=== PATIENT | male | born 2000 | race Caucasian/White ===

== ENCOUNTER 2025-04-24 03:15 | Emergency (ER) | payer BC, SELFPAY ==
[2025-04-24 03:18] VITALS: BP 139/89
[2025-04-24 03:53] LABS: Hematocrit 43.9 % (39.0-52.0); Hemoglobin 15.6 g/dL (13.0-18.0); Mean Corp Hgb Conc. 35.5 g/dL (33.0-37.0); Mean Corpuscular Volume 81.4 fL (80.0-94.0); Nucleated Red Blood Cells % 0 % (-); Platelet Count 270 10^3/uL (130-400); Red Cell Dist. Width 11.9 % (11.5-14.5)
[2025-04-24 04:20] LABS: ALT (SGPT) 27 U/L (0-50); AST (SGOT) 50 U/L (17-59); Albumin 5.0 g/dl (3.5-5.0); Alkaline Phosphatase 61 U/L (38-126); Blood Urea Nitrogen 10 mg/dl (9-20); Calcium 9.7 mg/dl (8.4-10.2); Carbon Dioxide 21 mmol/L (22-30); Chloride 107 mmol/L (98-107); Glucose 117 mg/dl (70-99); Potassium 4.0 mmol/L (3.5-5.1); Sodium 139 mmol/L (135-145); Total Protein 7.7 g/dl (6.3-8.2); eGFR > 60.00
--- NOTE | 2025-04-24 05:58 | ED.GENMED ---
History of Present Illness
General
Chief Complaint: Rectal Bleeding
Source: patient
Exam Limitations: none
Time Seen by Provider: 04/24/25 03:29
Nursing documentation reviewed up to this point in time: agreed with
History of Present Illness
History of Present Illness:
Note:
CHIEF COMPLAINT(S)
Acute intestinal issues. Abdominal pain
HISTORY OF PRESENT ILLNESS
The patient is a 24-year-old male presenting with acute abdominal pain. The onset of symptoms began at approximately 3:00 AM. The patient reports no prior history of similar episodes. Initially, symptoms started after a walk, with the patient
experiencing a strong urge to defecate, resulting in multiple bowel movements. During this time, the patient experienced profuse sweating and subsequently had several more bowel movements, some of which were accompanied by blood.
PLAN
The plan includes administering fluids to the patient and conducting a computed tomography (CT) scan to further evaluate the intestinal issues.
DIFFERENTIAL DIAGNOSIS
The Differential Diagnosis includes, in no particular order and is not limited to:
1. Infectious gastroenteritis
2. Inflammatory bowel disease
3. Gastrointestinal bleeding
4. Diverticulitis
5. Ischemic colitis
6. Peptic ulcer disease with bleeding
7. Hemorrhoids
8. Anal fissure
9. Irritable bowel syndrome with diarrhea
10. Foodborne illness
CARE-UPDATE
04/24/25 - 04:37
The patients stool consistency has improved; it is more formed, and no blood is currently noted. The initial concern about bloody diarrhea has diminished, reducing the level of worry regarding this symptom. The patient experienced significant
dehydration, contributing to episodes of shaking, likely due to excessive fluid loss. This condition is atypical for the patient, as he generally does not fall ill, which might be contributing to his anxiety. Monitoring and hydration are advised to
prevent further dehydration and alleviate associated symptoms.
CARE-UPDATE
04/24/25 - 05:14
Patient reports improvement with no recent blood in stools. Awaiting lab results for further evaluation. Plan to administer one liter of fluids while monitoring. Possibility of colitis mentioned; no nausea reported.
CARE-UPDATE
04/24/25 - 05:58
CT scan shows a mildly thick-walled sigmoid colon, mostly decompressed, suggestive of mild colitis, but non-specific findings. There is no significant stranding, pneumatosis, portal venous gas, free air, or free fluid observed. Appendix,
gallbladder, common bile duct, and pancreas appear normal. No renal calculi or hydronephrosis noted.
Disposition:
SUMMARY OF ENCOUNTER
A 24-year-old male presented with acute abdominal pain that began around 3 a.m. He experienced multiple episodes of stools, some with blood streaking. A CT scan showed findings suggestive of mild colitis. The bleeding has stopped, and the patient
has provided stool samples without blood. The patient reports feeling significantly better.
DISPOSITION
Discharge
ASSESSMENT
The patients current symptoms and CT findings suggest mild colitis as the most likely diagnosis.
PLAN
The patient is to remain hydrated and monitor for any recurrence of symptoms. Should symptoms return or worsen, he is advised to seek further medical evaluation.
INDEPENDENT REVIEW OF LABS AND INTERPRETATION OF TESTS
My independent interpretation of the CT scan shows a mildly thick-walled sigmoid colon, suggestive of mild colitis. There is no significant stranding, pneumatosis, portal venous gas, free air, or free fluid, and the appendix, gallbladder, common
bile duct, and pancreas appear normal. No renal calculi or hydronephrosis are noted.
PATIENT EDUCATION AND COUNSELING
The patient was informed about the diagnosis of mild colitis and the importance of staying hydrated. He was advised to watch for any recurrence of symptoms, including blood in stools or worsening pain, and to avoid potential dietary triggers.
FOLLOW-UP INSTRUCTIONS
The patient is advised to follow up with his primary care physician if symptoms persist or worsen.
MEDICATION RECONCILIATION
No medications were administered during the emergency department visit or prescribed upon discharge.
MEDICAL DECISION MAKING
-Complexity of Data Reviewed: Differential Diagnosis includes:
1. Infectious gastroenteritis
2. Inflammatory bowel disease
3. Gastrointestinal bleeding
4. Diverticulitis
5. Ischemic colitis
6. Peptic ulcer disease with bleeding
7. Hemorrhoids
8. Anal fissure
9. Irritable bowel syndrome with diarrhea
10. Foodborne illness
-Data:
Category [address] scan was independently interpreted to show mild colitis with no signs of harsher complications.
Category 2
None
Category 3
None
-Risk: Consideration of Admission/Observation: Escalation of care including admission/observation was considered given the complexity and risk of the patients presenting complaint. However, ultimately I feel the patient is safe for outpatient
management with close follow-up. Reasoning: Work-up reassuring, does not reveal any acute life/organ threatening processes, patients symptoms are well controlled upon reevaluation, reexamination is reassuring, vitals are stable, patient agreeable
with discharge, reliable for follow-up.
DIAGNOSIS
Colitis, unspecified (ICD-10: K52.9)
Phy Exam
General Physical Exam
General Presentation: well appearing and no apparent distress
General Skin: warm and dry
General Habitus: normal
General Mental: alert
General Hydration: appears well hydrated
ENT Exam
ENT Exam: EOMI, pharynx normal, neck supple and normocephalic
Eye Exam
Eye Exam: PERRL, cornea clear and conjunctiva normal
Cardiovascular Exam
Cardiovascular Exam: regular rate/rhythm, no edema, no murmur and normal peripheral pulses
Pulmonary Exam
Pulmonary Exam: lungs clear, no respiratory distress, no rales, no crackles, no rhonchi, no stridor, no wheezing and no cough
Gastrointestinal Exam
Gastrointestinal Exam: normal bowel sounds, non tender, soft, no organomegaly, no pulsatile mass and non distended
Neurological Exam
Neurological Exam: alert, oriented x3, no motor deficits and speech normal
Musculoskeletal Exam
Musculoskeletal Exam: full ROM and no edema
Skin Exam
Skin Exam: normal color, warm/dry, no rash and no petechia
Psychiatric Exam
Psychiatric Exam: normal mood/affect
Sepsis
Sepsis Screening
Sepsis Assessment: Sepsis
Sepsis Screen
Sepsis Screen: Sepsis
Date: 04/25/25
Time: 22:02
Course
Orders/Labs/Results
Orders:
Orders
04/24/25 03:41
IV Insert/Care/Rem.- Treatment PRN
04/24/25 03:44
Complete Blood Count/With Diff Urgent
Comprehensive Metabolic Panel Urgent
04/24/25 04:25
CT Abd/pelvis W Iv Cont Urgent
Comment:
Reason For Exam: abd pain, bloody diarrhea
Abnormal Lab Results
04/24/25
03:44
WBC 12.5 H 10^3/uL
(4.8-10.8)
Abs Immat Gran (auto) 0.1 H 10^3/uL
(0-0.05)
Absolute Neuts (auto) 9.0 H 10^3/uL
(1.4-6.5)
Absolute Monos (auto) 1.1 H 10^3/uL
(0.1-0.6)
Lymphocytes % 16.9 L %
(20.5-51.1)
Carbon Dioxide 21 L mmol/L
(22-30)
Glucose 117 H mg/dl
(70-99)
04/24/25 03:44
04/24/25 03:44
Vital Signs
Initial and Last Documented VS:
Initial Vital Signs
Temp Pulse Resp BP Pulse Ox
98.9 F 108 18 139/89 98
04/24/25 03:18 04/24/25 03:18 04/24/25 03:18 04/24/25 03:18 04/24/25 03:18
Last Documented Vital Signs
Temp Pulse Resp BP Pulse Ox
98.9 F 85 20 135/83 98
04/24/25 03:18 04/24/25 06:00 04/24/25 06:00 04/24/25 06:00 04/24/25 06:00
*Pulse Oximetry
SaO2: 98
Oxygen Mode of Delivery: Room air
Patient hypoxic: no
*Critical Care Note
Total Time (30-74mins, 75-104mins- exclusive of procedures): Not Applicable
Update Note
Update Note:
Preliminary Radiology Report
[facility], [facility] - Phone
[facility]
NAME: ELISEO YODER
DATE OF EXAM: 04/24/2025
Patient No: [id number]
Physician: GUNNAR^Sharee
Date of : 2000
Past Medical History (entered by Technologist):
Reason For Exam (entered by Technologist): abd pain, bloody diarrhea
Other Notes (entered by Technologist): Pt states that around 1930 he developed bloating and had multiple loose watery stools and then 2 with blood. Pt has chills
no prior ct a/p
Additional Information (per [facility]):
CT Abdomen and Pelvis (with IV contrast):
IMPRESSION:
Mildly thick walled sigmoid colon which is mostly decompressed is nonspecific and may reflect a mild colitis. No significant stranding. No pneumatosis or portal venous gas. No free air or free fluid. Normal appendix.
Normal gallbladder, bile ducts and pancreas. No obstructing renal calculi or hydronephrosis.
The report was faxed/transmitted at 5:17 AM EST. Please call [facility] at if you would like to discuss the case or have questions.
Singh Morse M.D.
This report has been electronically signed and verified by the Radiologist whose name is printed above.
ED Attending Note
-
Portions of this chart may have been created with voice recognition software.� Occasional wrong word or��sound alike� substitutions may have occurred due to the inherent limitations of voice recognition software.
Discharge Plan
Departure
Patient Disposition: Home (Routine Discharge)
Date of Disposition: 04/24/25
Time of Disposition: 06:01
Patient with high blood pressure during this ER visit?: Yes
Condition: Good
Discharge Problem:
Colitis
Instructions: Colitis, Abdominal Pain
Prescriptions:
New
ondansetron HCl 4 mg tablet
4 mg PO TID PRN (Reason: nausea and vomiting) Qty: 10 0RF
Referrals:
[facility] [Outside]
UNKNOWN - PT DOES,NOT KNOW [Family Provider]
Activity Restrictions/Additional Instructions:
Thank You for choosing [facility].
It was a pleasure meeting you and taking part in your care. We hope for your continued healing and wellness.
Please read discharge instructions in their entirety. However, they are for general education and may not describe your exact diagnosis at discharge. Information on your ER visit and medical conditions were discussed with you along with appropriate
follow up information...
If indicated, please take your medications as instructed and indicated on discharge paperwork.
Please schedule a follow up appointment as directed. Call to schedule an appointment
Please return to the emergency department with ANY change in, persisting, or worsening of symptoms. If any of your symptoms do not improve, or persist, or become more severe within 6-12 hours, please return to the emergency department for further
care.
Please return to the emergency department if you develop a headache, neck pain/stiffness, fever greater than 100.4F, chest pain, shortness of breath, persistent nausea, vomiting, slurred speech, difficulty walking, numbness/tingling, weakness, signs
of infection or any other symptoms that are worrisome to you.
If you have any questions or concerns please do not hesitate to call the Hospital at or E-mail me directly at [email or web address]
Interventions
Interventions:
*Risk Screen - Suicide Last Done: 04/24/25 03:18
*General Assessment Last Done: 04/24/25 03:18
*Neglect/Abuse Screening Last Done: 04/24/25 03:18
*ED- Fall Risk Assessment Last Done: 04/24/25 03:18
*ED COVID-19 Vaccine History Last Done: 04/24/25 03:18
*Nursing Disposition Last Done: 04/24/25 06:33
HD-Ffizfz-Qxislupyxa Assessment Last Done: 04/24/25 04:00
Discharge Date and Time
Discharge Date/Time: 04/24/25 06:34
Print Language: CHINESE
[2025-04-24 06:00] VITALS: BP 135/83
== END 2025-04-24 06:34 | disposition home or self-care (01) ==
LOC: EMR 03:15
PROVIDERS: EMERGENCY PHYSICIAN Student in an Organized Health Care Education/Training Program
DX: K52.9 Noninfective gastroenteritis and colitis, unspecified (principal); R10.9 Unspecified abdominal pain
CPT/HCPCS: 99284; 74177; 80053; 85025; Q9967

== ENCOUNTER 2025-06-24 20:12 | Emergency (ER) | payer BC, SELFPAY ==
[2025-06-24 20:14] VITALS: BP 131/80
--- NOTE | 2025-06-24 23:31 | ED.GENMED ---
History of Present Illness
General
Chief Complaint: Musculo-Skeletal Complaint
Source: patient
Exam Limitations: none
Time Seen by Provider: 06/24/25 20:21
Nursing documentation reviewed up to this point in time: agreed with
History of Present Illness
History of Present Illness:
Patient is a 24-year-old male who presents to the emergency department with left ankle injury sustained following inversion injury earlier this evening. Patient states that he tripped down the last few steps inverting his left ankle. He did not
sustain any other injuries during fall. He describes pain in the lateral aspect of his left ankle, worse with weight bearing. No numbness/tingling in left ankle or foot. No pain in left knee.
No other concerns
Review of Systems
Review of Systems
Allergies reviewed?: Yes
All Other Systems: ROS reviewed and negative except as documented in HPI and ROS
Phy Exam
Physical Exam
Physical Exam:
Vitals: Patient's vital signs are stable. Afebrile
General: Patient is well appearing, no acute distress
Skin: Warm and dry, no rashes or lesions
Head: Normocephalic, atraumatic
Throat: Protecting airway
Neck: Normal ROM, no cervical spine tenderness
Cardiac: Regular rate
Pulm: No apparent respiratory distress
Abdomen: Nondistended
Extremities: Diffuse edema of left ankle with tenderness just anterior to left lateral malleolus. No true bony tenderness of both medial or lateral malleolus. No tenderness at head of left fibula, base of left 5h metatarsal, or calcaneus. Achilles
intact. 2+ palpable DP pulse in LLE with normal capillary refill.
Neuro: Grossly intact
Psychiatric: Normal affect.
Course
Orders/Labs/Results
Orders:
Orders
06/24/25 20:17
CR Ankle - Left Min 3 Views Urgent
Comment:
Reason For Exam: Injury
06/24/25 21:46
Crutches-Treatment ONCE
Vital Signs
Initial and Last Documented VS:
Initial Vital Signs
Temp Pulse Resp BP Pulse Ox
97.6 F 88 16 131/80 96
06/24/25 20:14 06/24/25 20:14 06/24/25 20:14 06/24/25 20:14 06/24/25 20:14
Last Documented Vital Signs
Temp Pulse Resp BP Pulse Ox
97.6 F 88 16 131/80 96
06/24/25 20:14 06/24/25 20:14 06/24/25 20:14 06/24/25 20:14 06/24/25 23:32
MDM/Problems Addressed
Differential Diagnosis Includes:
Not limited to: Ankle sprain, distal fibular fracture, Achilles tendon rupture, Coronel fracture, etc.
MDM/Problems Addressed:
24 y.o male w/ left ankle pain following inversion injury prior to arrival. No associated head strike or other injuries. Vitals as above. On exam, patient well appearing, in no distress. No evidence of head or neck trauma. Diffuse edema of left
ankle with mild tenderness just anterior to lateral malleolus. No bony tenderness or deformity of left ankle. LLE neurovascularly intact.
Xray of left ankle negative for fracture. Ultimately - suspect ankle sprain. Will provide orhto boot and crutches for weight bearing. Advised RICE, NSAIDs for pain and ortho f/u if symptoms persist and/or worsen. Patient comfortable with plan.
Stable for discharge home.
Chronic conditions affecting care:
N/A
Acute Exacerbation and/or Progression of Chronic Illness:
N/A
*Radiology
Radiology exam reviewed: preliminary read by ED provider (Left ankle x-ray read by me-no acute fracture) and radiology read reviewed
*Pulse Oximetry
SaO2: 96
Oxygen Mode of Delivery: Room air
Patient hypoxic: no
*EKG
Interpreted by ED Provider?: NA
*Outside Sales Professional Interpretation
Rate: Outside Sales Professional- N/A
*Critical Care Note
Total Time (30-74mins, 75-104mins- exclusive of procedures): Not Applicable
ED Attending Note
-
Portions of this chart may have been created with voice recognition software.� Occasional wrong word or��sound alike� substitutions may have occurred due to the inherent limitations of voice recognition software.
Discharge Plan
Departure
Patient Disposition: Home (Routine Discharge)
Date of Disposition: 06/24/25
Time of Disposition: 21:11
Patient with high blood pressure during this ER visit?: Yes
Discharge Problem:
Left ankle injury
Instructions: Ankle sprain - ED (DC), BLOOD PRESSURE
Prescriptions:
No Action
ondansetron HCl 4 mg tablet
4 mg PO TID PRN (Reason: nausea and vomiting) Qty: 10 0RF
Referrals:
NONE,* [Family Provider, Internal Medicine]
Leighton Grady MD [Active, Orthopedics]
Stand Alone Forms: Return to Work
Activity Restrictions/Additional Instructions:
RETURN TO THE EMERGENCY DEPARTMENT WITH ANY NUMBNESS/TINGLING IN LEFT ANKLE, BACK PAIN, WORSENING IN CURRENT SYMPTOMS, OR ANY OTHER CONCERNS
- As discussed�your x-ray showed no evidence of ankle fracture. You likely sustained an ankle sprain.
- Please wear boot for the next few weeks and use crutches over the next 2 days as needed for ambulation. Continue to ice, elevate your left ankle. You can take Tylenol and/or Motrin as needed for pain
- Follow-up with orthopedics as needed for further evaluation/management if symptoms persist and/or worsen
Monitor your symptoms closely and return to the emergency department with any acute worsening/new symptoms or any other concerns
Interventions
Interventions:
*Risk Screen - Suicide Last Done: 06/24/25 21:53
*General Assessment Last Done: 06/24/25 21:53
*Neglect/Abuse Screening Last Done: 06/24/25 21:53
*ED- Fall Risk Assessment Last Done: 06/24/25 21:53
*ED COVID-19 Vaccine History Last Done: 06/24/25 21:53
*Nursing Disposition Last Done: 06/24/25 21:53
ED-Musculoskeletal Assessment Last Done: 06/24/25 21:52
Discharge Date and Time
Discharge Date/Time: 06/24/25 21:54
Print Language: PORTUGUESE
== END 2025-06-24 21:54 | disposition home or self-care (01) ==
LOC: EMR 20:12
PROVIDERS: EMERGENCY PHYSICIAN Student in an Organized Health Care Education/Training Program
DX: S99.912A Unspecified injury of left ankle, initial encounter (principal); R03.0 Elevated blood-pressure reading, without diagnosis of hypertension; W10.9XXA Fall (on) (from) unspecified stairs and steps, initial encounter; X50.1XXA Overexertion from prolonged static or awkward postures, initial encounter
CPT/HCPCS: 99283; 73610